=== PATIENT | female | born 1955 | race Caucasian/White ===

== ENCOUNTER → 2019-03-07 14:26 | Outpatient (CLI) | payer MEDICARE, SELFPAY ==
--- NOTE | 2019-03-07 14:44 | XR_ITS ---
PROCEDURE: XR TMJ BI CLINICAL INDICATION: TMJ LOCKING UP Left-sided TMJ locking up COMPARISON: No exams were available for comparison FINDINGS: Closed and open mouth images obtained show unremarkable TMJs with no evidence of dislocation or abnormal subluxation or fixed positioning. No obvious fracture. IMPRESSION: Unremarkable TMJs Dictated by: Elian Kwok MD 03/07/2019 16:25 Electronically signed by Elian Kwok MD in [place] 03/07/2019 16:25
--- NOTE | 2019-03-07 14:44 | XR_ITS ---
PROCEDURE: XR SHOULDER LT MIN 2V CLINICAL INDICATION: SHOULDER PAIN COMPARISON: No exams were available for comparison FINDINGS: Mild osteoarthritic changes are present at the acromioclavicular joint. The glenohumeral joint has an unremarkable appearance. Artifact is present along the mid chest and axillary region. No fracture or dislocation. No lytic or blastic change. IMPRESSION: Minimal osteoarthritic change of the acromioclavicular joint. Dictated by: Elian Kwok MD 03/07/2019 16:23 Electronically signed by Elian Kwok MD in [place] 03/07/2019 16:23
== END ==
PROVIDERS: PCP Internal Medicine; Visit Provider Internal Medicine
DX: M25.512 Pain in left shoulder (principal); M26.602 Left temporomandibular joint disorder, unspecified
CPT/HCPCS: 70330; 73030

== ENCOUNTER 2019-03-31 13:00 | Outpatient (RCR) | payer MEDICARE, SELFPAY | END 2019-03-31 13:05 | disposition home or self-care (01) | LOC: PT 13:00 | PROVIDERS: Visit Provider Internal Medicine | DX: M25.512 Pain in left shoulder (principal); M25.511 Pain in right shoulder | CPT/HCPCS: 97010; 97014; 97035; 97110; 97140; 97163; G0283 ==

== ENCOUNTER → 2019-11-14 10:00 | Outpatient (CLI) | payer MEDICARE, SELFPAY ==
[2019-11-14 10:47] LABS: Basophils % 0.7 % (0.1-2.0); Eosinophils # 0.2 K/mm3 (0.0-0.4); Hemoglobin 14.1 g/dL (12.2-16.2); Lymphocytes # 1.8 K/mm3 (0.7-4.5); Lymphocytes % 39.3 % (10-50); Mean Corpuscular HGB Conc 33.7 g/dL (31.8-35.4); Mean Corpuscular Hemoglobin 32.3 pg (27.0-31.2); Mean Corpuscular Volume 95.9 fl (81-99); Monocytes # 0.2 K/mm3 (0.1-1.0); Neutrophils # 2.4 K/mm3 (1.8-7.8); Neutrophils % 50.9 % (37.0-80.0); Platelet Count 322 K/mm3 (142-424); Red Blood Count 4.38 M/mm3 (4.20-5.40); Red Cell Distribution Width 13.1 % (11.5-17.5); White Blood Count 4.7 K/mm3 (4.8-10.8)
[2019-11-14 11:29] LABS: Alanine Aminotransferase 29 U/L (12-78); Albumin Level 4.9 g/dl (3.5-5.0); Albumin/Globulin Ratio 1.7 (1.1-1.8); Alkaline Phosphatase 89 U/L (38-126); Anion Gap 13.5 mEq/L (5-15); Aspartate Amino Transferase 40 U/L (14-36); Bilirubin,Total 0.4 mg/dl (0.2-1.3); Blood Urea Nitrogen 16 mg/dl (7-17); Carbon Dioxide 31 mmol/L (22.0-30.0); Chloride 100 mmol/L (98-107); Chol/HDL Ratio 3.4 (1-3.5); Cholesterol 252 mg/dl (140-200); Estimated Glomerular Filt Rate 84 ml/min (>60); GFR (African American) 101 ML/MIN (>60); Globulin 2.9 g/dL (1.3-3.2); Glucose 110 mg/dl (74-100); HDL Cholesterol 75 mg/dl (40-60); Potassium 4.5 mmoL/L (3.5-5.1); Sodium 140 mmol/L (136-145); Total Protein,Serum 7.8 g/dl (6.3-8.2); Triglycerides 129 mg/dl (30-150); VLDL Cholesterol 26 mg/dL (0-40)
[2019-11-14 11:40] LABS: Direct LDL Cholesterol 142.09 mg/dL (100-129)
[2019-11-14 13:02] LABS: 25-OH Vitamin D, Total 55.1 ng/mL (30-100)
== END ==
PROVIDERS: Visit Provider Internal Medicine
DX: E78.5 Hyperlipidemia, unspecified (principal); M81.0 Age-related osteoporosis without current pathological fracture; M15.0 Primary generalized (osteo)arthritis
CPT/HCPCS: 80053; 80061; 82306; 85025

== ENCOUNTER → 2019-12-06 08:35 | Outpatient (CLI) | payer MEDICARE, OTHER, SELFPAY ==
--- NOTE | 2019-12-06 08:40 | XR_ITS ---
PROCEDURE: XR SHOULDER LT MIN 2V CLINICAL INDICATION: left shoulder pain COMPARISON: XR SHOULDER LT MIN 2V from 03/07/2019 FINDINGS: There are mild osteoarthritic changes of the acromioclavicular joint and glenohumeral joint. No fracture or dislocation. No lytic or blastic change. No subacromial stenosis. IMPRESSION: Mild osteoarthritic change Dictated by: Elian Kwok MD 12/06/2019 15:38 Electronically signed by Elian Kwok MD in [place] 12/06/2019 15:38
== END ==
PROVIDERS: PCP Internal Medicine; Visit Provider Orthopaedic Surgery
DX: M25.512 Pain in left shoulder (principal)
CPT/HCPCS: 73030

== ENCOUNTER → 2019-12-12 07:42 | Outpatient (CLI) | payer MEDICARE, SELFPAY ==
--- NOTE | 2019-12-12 07:42 | MR_ITS ---
PROCEDURE: MR SHOULDER LT WO CON CLINICAL INDICATION: left shoulder pain UNABLE TO PUT HAND BEHIND BACK. WHEN LIFTING AND PULLING BACK PATIENT HAS SHOULDER PAIN. NO INJURY. XYRS. WEAKNESS IN ARM. PRIOR X-RAY 12-06-19 COMPARISON: XR SHOULDER LT MIN 2V from 12/06/2019 TECHNIQUE: Routine multiplanar multi echo sequences are performed without gadolinium enhancement. FINDINGS: Motion artifact somewhat obscures fine detail. Mild subacromial stenosis. There are mild hypertrophic changes of the acromioclavicular joint. There is slight increased T2 signal of the supraspinatus tendon distally suggesting tendinopathy/tendinosis with minimal irregularity of the undersurface of the supraspinatus tendon which could be due to partial tear.. A complete or full-thickness tear is not felt to be present. The infraspinatus, subscapularis, and teres minor tendons are intact. Bicipital tendon is in place. No obvious labral tear. There is a small amount fluid within the bicipital tendon sheath. IMPRESSION: 1. Tendinopathy/tendinosis of the supraspinatus tendon with possible partial incomplete tear along the inferior surface. A full-thickness or complete tear is not present. There is mild subacromial stenosis. 2. Small amount fluid within the bicipital tendon sheath suggesting tendonitis Dictated by: Elian Kwok MD 12/13/2019 11:08 Electronically signed by Elian Kwok MD in [place] 12/13/2019 11:08
== END ==
PROVIDERS: PCP Internal Medicine; Visit Provider Orthopaedic Surgery
DX: M25.512 Pain in left shoulder (principal)
CPT/HCPCS: 73221

== ENCOUNTER → 2020-01-16 10:42 | Outpatient (POV) | payer MEDICARE, SELFPAY | PROVIDERS: Visit Provider Otolaryngology | DX: Z00.00 Encounter for general adult medical examination without abnormal findings (principal) ==

== ENCOUNTER → 2020-05-22 09:34 | Outpatient (CLI) | payer MEDICARE, SELFPAY ==
[2020-05-22 10:52] LABS: Chloride 103 mmol/L (98-107); Potassium 5.8 mmoL/L (3.5-5.1); Sodium 141 mmol/L (136-145)
[2020-05-22 10:54] LABS: Blood Urea Nitrogen 17 mg/dl (7-17); Estimated Glomerular Filt Rate 72 ml/min (>60); GFR (African American) 87 ML/MIN (>60)
[2020-05-22 10:55] LABS: Alanine Aminotransferase 30 U/L (12-78); Albumin/Globulin Ratio 1.7 (1.1-1.8); Alkaline Phosphatase 78 U/L (38-126); Anion Gap 13.8 mEq/L (5-15); Aspartate Amino Transferase 34 U/L (14-36); Bilirubin,Total 0.6 mg/dl (0.2-1.3); Calcium 10.3 mg/dl (8.4-10.2); Carbon Dioxide 30 mmol/L (22.0-30.0); Chol/HDL Ratio 2.8 (1-3.5); Cholesterol 215 mg/dl (140-200); Creatine Kinase 78 U/L (30-135); Glucose 106 mg/dl (74-100); HDL Cholesterol 77 mg/dl (40-60); Triglycerides 115 mg/dl (30-150); VLDL Cholesterol 23 mg/dL (0-40)
== END ==
PROVIDERS: Visit Provider Internal Medicine
DX: E78.5 Hyperlipidemia, unspecified (principal); R73.01 Impaired fasting glucose; H81.10 Benign paroxysmal vertigo, unspecified ear
CPT/HCPCS: 36415; 80053; 80061; 82550

== ENCOUNTER → 2020-09-23 09:25 | Outpatient (CLI) | payer MEDICARE, SELFPAY ==
[2020-09-23 11:08] LABS: Chloride 102 mmol/L (98-107)
[2020-09-23 11:09] LABS: Potassium 5.1 mmoL/L (3.5-5.1); Sodium 141 mmol/L (136-145)
[2020-09-23 11:11] LABS: Alanine Aminotransferase 28 U/L (12-78); Alkaline Phosphatase 82 U/L (38-126); Aspartate Amino Transferase 35 U/L (14-36); Bilirubin,Total 0.6 mg/dl (0.2-1.3); Blood Urea Nitrogen 18 mg/dl (7-17); Estimated Glomerular Filt Rate 83 ml/min (>60); GFR (African American) 101 ML/MIN (>60)
[2020-09-23 11:12] LABS: Albumin Level 5.1 g/dl (3.5-5.0); Anion Gap 15.1 mEq/L (5-15); Calcium 9.8 mg/dl (8.4-10.2); Carbon Dioxide 29 mmol/L (22.0-30.0); Chol/HDL Ratio 3.4 (1-3.5); Cholesterol 223 mg/dl (140-200); Globulin 2.5 g/dL (1.3-3.2); Glucose 100 mg/dl (74-100); HDL Cholesterol 65 mg/dl (40-60); Total Protein,Serum 7.6 g/dl (6.3-8.2); Triglycerides 167 mg/dl (30-150); VLDL Cholesterol 33 mg/dL (0-40)
== END ==
PROVIDERS: Visit Provider Internal Medicine
DX: E78.5 Hyperlipidemia, unspecified (principal); E87.5 Hyperkalemia; B78.9 Strongyloidiasis, unspecified
CPT/HCPCS: 36415; 80053; 80061

== ENCOUNTER → 2020-12-30 10:05 | Outpatient (CLI) | payer MEDICARE, SELFPAY ==
[2020-12-30 10:56] LABS: Chloride 104 mmol/L (98-107); Sodium 141 mmol/L (136-145)
[2020-12-30 10:57] LABS: Potassium 4.7 mmoL/L (3.5-5.1)
[2020-12-30 10:59] LABS: Alanine Aminotransferase 26 U/L (12-78); Alkaline Phosphatase 85 U/L (38-126); Aspartate Amino Transferase 38 U/L (14-36); Bilirubin,Total 0.9 mg/dl (0.2-1.3); Blood Urea Nitrogen 17 mg/dl (7-17); Estimated Glomerular Filt Rate 100 ml/min (>60); GFR (African American) 121 ML/MIN (>60)
[2020-12-30 11:00] LABS: Albumin Level 5.1 g/dl (3.5-5.0); Albumin/Globulin Ratio 1.8 (1.1-1.8); Anion Gap 12.7 mEq/L (5-15); Calcium 9.5 mg/dl (8.4-10.2); Carbon Dioxide 29 mmol/L (22.0-30.0); Chol/HDL Ratio 3.2 (1-3.5); Cholesterol 217 mg/dl (140-200); Globulin 2.9 g/dL (1.3-3.2); Glucose 96 mg/dl (74-100); HDL Cholesterol 67 mg/dl (40-60); Triglycerides 173 mg/dl (30-150); VLDL Cholesterol 35 mg/dL (0-40)
[2020-12-30 11:11] LABS: Direct LDL Cholesterol 103.16 mg/dL (100-129)
== END ==
PROVIDERS: Visit Provider Internal Medicine
DX: E78.5 Hyperlipidemia, unspecified (principal); M81.0 Age-related osteoporosis without current pathological fracture; M15.0 Primary generalized (osteo)arthritis
CPT/HCPCS: 36415; 80053; 80061

== ENCOUNTER → 2021-03-25 08:26 | Outpatient (CLI) | payer MEDICARE, SELFPAY ==
[2021-03-25 09:17] LABS: Basophils # 0.1 K/mm3 (0-0.2); Basophils % 1.2 % (0.1-2.0); Eosinophils # 0.2 K/mm3 (0.0-0.4); Eosinophils % 4.4 % (0.1-12.0); Hematocrit 44.6 % (37.0-47.0); Hemoglobin 14.3 g/dL (12.2-16.2); Lymphocytes # 1.9 K/mm3 (0.7-4.5); Lymphocytes % 41.9 % (10-50); Mean Platelet Volume 7.9 fl (7.4-10.4); Monocytes # 0.3 K/mm3 (0.1-1.0); Monocytes % 5.8 % (1.7-9.3); Neutrophils # 2.1 K/mm3 (1.8-7.8); Neutrophils % 46.7 % (37.0-80.0); Platelet Count 334 K/mm3 (142-424); Red Blood Count 4.46 M/mm3 (4.20-5.40); Red Cell Distribution Width 13.1 % (11.5-17.5); White Blood Count 4.5 K/mm3 (4.8-10.8)
[2021-03-25 09:56] LABS: Chloride 104 mmol/L (98-107); Sodium 141 mmol/L (136-145)
[2021-03-25 09:58] LABS: Alanine Aminotransferase 29 U/L (12-78); Aspartate Amino Transferase 37 U/L (14-36); Blood Urea Nitrogen 14 mg/dl (7-17); Estimated Glomerular Filt Rate 83 ml/min (>60); GFR (African American) 101 ML/MIN (>60)
[2021-03-25 09:59] LABS: Albumin Level 4.7 g/dl (3.5-5.0); Albumin/Globulin Ratio 1.7 (1.1-1.8); Alkaline Phosphatase 77 U/L (38-126); Bilirubin,Total 0.5 mg/dl (0.2-1.3); Calcium 9.6 mg/dl (8.4-10.2); Carbon Dioxide 30 mmol/L (22.0-30.0); Chol/HDL Ratio 3.2 (1-3.5); Cholesterol 212 mg/dl (140-200); Globulin 2.8 g/dL (1.3-3.2); Glucose 97 mg/dl (74-100); HDL Cholesterol 66 mg/dl (40-60); Total Protein,Serum 7.5 g/dl (6.3-8.2); Triglycerides 150 mg/dl (30-150); VLDL Cholesterol 30 mg/dL (0-40)
[2021-03-25 10:25] LABS: Direct LDL Cholesterol 101.87 mg/dL (100-129)
== END ==
PROVIDERS: Visit Provider Internal Medicine
DX: E78.5 Hyperlipidemia, unspecified (principal); M15.0 Primary generalized (osteo)arthritis
CPT/HCPCS: 36415; 80053; 80061; 85025

== ENCOUNTER → 2021-04-30 15:19 | Outpatient (CLI) | payer MEDICARE, SELFPAY ==
--- NOTE | 2021-04-30 15:24 | XR_ITS ---
PROCEDURE: XR KNEE RT 3V CLINICAL INDICATION: RT KNEE PAIN/SWELLING COMPARISON: No exams were available for comparison FINDINGS: No fracture or dislocation. No lytic or blastic change. There is normal mineralization. Osteoarthritic changes are present involving the lateral compartment with decrease in the joint space and osteophyte formation of the distal femur laterally. There is mild lateral translation of the tibia by approximately 4 mm. Increased density is present in the suprapatellar region consistent with knee joint effusion. Other findings:None. IMPRESSION: Mild osteoarthritic changes of the lateral compartment with knee joint effusion Dictated by: Elian Kwok MD 04/30/2021 15:46 Elian Kwok MD in [place] 04/30/2021 15:46
== END ==
PROVIDERS: PCP Internal Medicine; Visit Provider Internal Medicine
DX: M25.561 Pain in right knee (principal); M25.461 Effusion, right knee
CPT/HCPCS: 73562

== ENCOUNTER → 2021-05-08 10:50 | Outpatient (CLI) | payer MEDICARE, SELFPAY ==
--- NOTE | 2021-05-08 10:53 | MR_ITS ---
PROCEDURE: MR KNEE RT WO CON CLINICAL INDICATION: RIGHT KNEE PAIN COMPARISON: CR XR KNEE RT 3V from 04/30/2021 TECHNIQUE: Routine multiplanar multi echo sequences are performed without gadolinium enhancement. FINDINGS: Cruciate ligaments appear intact. The collateral ligaments, patellar tendon, and quadriceps tendon appear intact. There is a horizontal tear involving the posterior horn of the lateral meniscus. There is slight diffuse increased PD signal within the body of the lateral meniscus. The anterior horn lateral meniscus also shows increased signal with some rounding off of the anterior and inferior margin along its central aspect suggesting a tear. The medial meniscus has an unremarkable appearance. There are tricompartmental osteoarthritic changes. There is mild lateral translation of the tibia. The body of the lateral meniscus is slightly extruded laterally. Increased T2 signal involves the subcortical region of the lateral tibial plateau laterally and more centrally suggesting areas of bone marrow edema. There is loss of the patellar cartilage posteriorly with mild lateral subluxation of the patella by approximately 4 mm. There is a medium size knee joint effusion. A 6.5 x 1.5 cm Arce's cyst is present. Spongiform areas of increased T2 signal are present along the anterior aspect of the distal femur medially and also along the anterior aspect of the femur and more proximally. These could represent areas of venous channels. IMPRESSION: 1. Nondisplaced horizontal tear posterior horn lateral meniscus 2. Abnormal shape with increased signal of the anterior horn of the lateral meniscus more medially also suggestive of a tear. 3. Osteoarthritic changes with medium size knee joint effusion and Arce's cyst. 4. Mild amount of edema involving the lateral and medial aspect of the lateral tibial plateau Dictated by: Elian Kwok MD 05/09/2021 12:04 Elian Kwok MD in [place] 05/09/2021 12:04
== END ==
PROVIDERS: PCP Internal Medicine; Visit Provider Internal Medicine
DX: M25.561 Pain in right knee (principal)
CPT/HCPCS: 73721

== ENCOUNTER → 2021-09-23 15:13 | Outpatient (CLI) | payer MEDICARE, SELFPAY ==
[2021-09-23 16:26] LABS: Chloride 104 mmol/L (98-107); Sodium 140 mmol/L (136-145)
[2021-09-23 16:29] LABS: Alanine Aminotransferase 24 U/L (12-78); Albumin Level 4.3 g/dl (3.5-5.0); Albumin/Globulin Ratio 1.8 (1.1-1.8); Alkaline Phosphatase 67 U/L (38-126); Anion Gap 13.6 mEq/L (5-15); Aspartate Amino Transferase 34 U/L (14-36); Bilirubin,Total 0.6 mg/dl (0.2-1.3); Blood Urea Nitrogen 12 mg/dl (7-17); Calcium 9.9 mg/dl (8.4-10.2); Carbon Dioxide 29 mmol/L (22.0-30.0); Cholesterol 182 mg/dl (140-200); Estimated Glomerular Filt Rate 71 ml/min (>60); GFR (African American) 86 ML/MIN (>60); Globulin 2.4 g/dL (1.3-3.2); Glucose 89 mg/dl (74-100); Total Protein,Serum 6.7 g/dl (6.3-8.2); Triglycerides 124 mg/dl (30-150); VLDL Cholesterol 25 mg/dL (0-40)
[2021-09-23 16:30] LABS: Chol/HDL Ratio 3.3 (1-3.5); HDL Cholesterol 56 mg/dl (40-60)
[2021-09-23 16:35] LABS: Potassium 6.6 mmoL/L (3.5-5.1)
[2021-09-23 16:40] LABS: Direct LDL Cholesterol 91.12 mg/dL (100-129)
[2021-09-23 17:15] LABS: 25-OH Vitamin D, Total 45.5 ng/mL (30-100)
== END ==
PROVIDERS: Visit Provider Internal Medicine
DX: R73.01 Impaired fasting glucose (principal); E78.5 Hyperlipidemia, unspecified; M81.0 Age-related osteoporosis without current pathological fracture; M17.11 Unilateral primary osteoarthritis, right knee
CPT/HCPCS: 80053; 80061; 82306

== ENCOUNTER → 2021-09-26 12:20 | Outpatient (CLI) | payer MEDICARE, SELFPAY ==
[2021-09-26 12:45] LABS: Potassium 6.1 mmoL/L (3.5-5.1)
== END ==
PROVIDERS: Visit Provider Internal Medicine
DX: E87.5 Hyperkalemia (principal)
CPT/HCPCS: 84132

== ENCOUNTER → 2021-10-03 10:51 | Outpatient (CLI) | payer MEDICARE, SELFPAY ==
[2021-10-03 11:58] LABS: Potassium 5.6 mmoL/L (3.5-5.1)
== END ==
PROVIDERS: PCP Internal Medicine; Visit Provider Internal Medicine
DX: E87.5 Hyperkalemia (principal)
CPT/HCPCS: 36415; 84132

== ENCOUNTER → 2021-10-17 11:22 | Outpatient (CLI) | payer MEDICARE, SELFPAY ==
[2021-10-17 12:33] LABS: Chloride 104 mmol/L (98-107); Sodium 141 mmol/L (136-145)
[2021-10-17 12:34] LABS: Potassium 5.5 mmoL/L (3.5-5.1)
[2021-10-17 12:36] LABS: Blood Urea Nitrogen 17 mg/dl (7-17); Estimated Glomerular Filt Rate 62 ml/min (>60); GFR (African American) 75 ML/MIN (>60)
[2021-10-17 12:37] LABS: Anion Gap 12.5 mEq/L (5-15); Calcium 10.3 mg/dl (8.4-10.2); Carbon Dioxide 30 mmol/L (22.0-30.0); Glucose 117 mg/dl (74-100)
== END ==
PROVIDERS: PCP Internal Medicine; Visit Provider Internal Medicine
DX: I10 Essential (primary) hypertension (principal); E87.5 Hyperkalemia
CPT/HCPCS: 36415; 80048

== ENCOUNTER → 2021-12-05 11:10 | Outpatient (CLI) | payer MEDICARE, SELFPAY ==
[2021-12-05 12:06] LABS: Basophils # 0.2 K/mm3 (0-0.2); Basophils % 5.3 % (0.1-2.0); Eosinophils # 0.1 K/mm3 (0.0-0.4); Eosinophils % 2.7 % (0.1-12.0); Hematocrit 46.7 % (37.0-47.0); Hemoglobin 14.5 g/dL (12.2-16.2); Lymphocytes # 2.1 K/mm3 (0.7-4.5); Lymphocytes % 50.1 % (10-50); Mean Corpuscular HGB Conc 31.2 g/dL (31.8-35.4); Mean Corpuscular Hemoglobin 31.6 pg (27.0-31.2); Mean Corpuscular Volume 101.6 fl (81-99); Mean Platelet Volume 7.7 fl (7.4-10.4); Monocytes # 0.3 K/mm3 (0.1-1.0); Neutrophils # 1.6 K/mm3 (1.8-7.8); Neutrophils % 39.2 % (37.0-80.0); Platelet Count 378 K/mm3 (142-424); Red Cell Distribution Width 13.3 % (11.5-17.5); White Blood Count 4.1 K/mm3 (4.8-10.8)
[2021-12-05 12:09] LABS: MANUAL DIFFERENTIAL MANUAL DIFFERENTIAL (MANUAL DIFF)
[2021-12-05 12:28] LABS: Anisocytosis 1+; Eosinophils % 1 % (0-3); Lymphocytes % 49 % (10-50); Macrocytosis 1+; Monocytes % 9 % (2-9); Neutrophils % 39 % (42-76); Poikilocytosis 1+; Total Cells Counted 100
[2021-12-05 12:29] LABS: Platelet Estimate Normal
[2021-12-05 13:26] LABS: Chloride 104 mmol/L (98-107)
[2021-12-05 13:27] LABS: Sodium 140 mmol/L (136-145)
[2021-12-05 13:29] LABS: Alanine Aminotransferase 21 U/L (12-78); Albumin Level 4.6 g/dl (3.5-5.0); Albumin/Globulin Ratio 1.8 (1.1-1.8); Alkaline Phosphatase 87 U/L (38-126); Aspartate Amino Transferase 34 U/L (14-36); Bilirubin,Total 0.5 mg/dl (0.2-1.3); Blood Urea Nitrogen 11 mg/dl (7-17); Calcium 10.3 mg/dl (8.4-10.2); Carbon Dioxide 29 mmol/L (22.0-30.0); Estimated Glomerular Filt Rate 62 ml/min (>60); GFR (African American) 75 ML/MIN (>60); Globulin 2.5 g/dL (1.3-3.2); Glucose 104 mg/dl (74-100); Total Protein,Serum 7.1 g/dl (6.3-8.2)
[2021-12-05 13:45] LABS: Anion Gap 12.1 mEq/L (5-15); Potassium 5.1 mmoL/L (3.5-5.1)
[2021-12-05 15:29] LABS: Vitamin B12 624 pg/mL (239-931)
[2021-12-05 15:31] LABS: Folate > 20.00 ng/mL
== END ==
PROVIDERS: PCP Internal Medicine; Visit Provider Internal Medicine
DX: K52.9 Noninfective gastroenteritis and colitis, unspecified (principal); E87.5 Hyperkalemia
CPT/HCPCS: 36415; 80053; 82607; 82746; 85007; 85025

== ENCOUNTER → 2021-12-11 10:27 | Outpatient (CLI) | payer MEDICARE, SELFPAY ==
[2021-12-11 10:42] LABS: Microscopic, Urine URINE MICROSCOPIC (MICROSCOPIC)
[2021-12-11 11:07] LABS: Appearance,Urine CLEAR (Clear); Bilirubin,Urine Negative (Negative); Blood, Urine Negative (Negative); Color,Urine YELLOW (Yellow); Glucose,Urine (UA) Negative (Negative); Ketones,Urine Negative (Negative); Leukocyte Esterase,Urine Negative (Negative); Nitrate,Urine Negative (Negative); Protein,Urine Negative (Negative); Specific Gravity, Urine <= 1.005 (1.005-1.030); Urobilinogen,Urine 0.2 EU/dl (0.2)
[2021-12-11 11:08] LABS: Basophils # 0.1 K/mm3 (0-0.2); Basophils % 2.2 % (0.1-2.0); Eosinophils # 0.1 K/mm3 (0.0-0.4); Eosinophils % 2.2 % (0.1-12.0); Hematocrit 44.8 % (37.0-47.0); Hemoglobin 14.1 g/dL (12.2-16.2); Lymphocytes # 2.1 K/mm3 (0.7-4.5); Lymphocytes % 38.3 % (10-50); Mean Corpuscular HGB Conc 31.6 g/dL (31.8-35.4); Mean Corpuscular Volume 101.3 fl (81-99); Mean Platelet Volume 7.9 fl (7.4-10.4); Monocytes # 0.4 K/mm3 (0.1-1.0); Monocytes % 7.9 % (1.7-9.3); Neutrophils # 2.8 K/mm3 (1.8-7.8); Neutrophils % 49.5 % (37.0-80.0); Platelet Count 438 K/mm3 (142-424); Red Blood Count 4.42 M/mm3 (4.20-5.40); Red Cell Distribution Width 13.5 % (11.5-17.5); White Blood Count 5.6 K/mm3 (4.8-10.8)
[2021-12-11 11:15] LABS: Creatinine,Urine Random 30 mg/dL (Not Estab.)
[2021-12-11 11:19] LABS: Bacteria,Urine Trace /lpf; Squamous Epithelial Cell,Urine Occasional #/hpf (0-5)
[2021-12-11 11:45] LABS: Albumin Level 4.3 g/dl (3.5-5.0); Anion Gap 11.6 mEq/L (5-15); Blood Urea Nitrogen 13 mg/dl (7-17); Calcium 9.8 mg/dl (8.4-10.2); Carbon Dioxide 29 mmol/L (22.0-30.0); Chloride 103 mmol/L (98-107); Estimated Glomerular Filt Rate 71 ml/min (>60); GFR (African American) 86 ML/MIN (>60); Glucose 104 mg/dl (74-100); Phosphorous 4.2 mg/dl (2.5-4.5); Potassium 5.6 mmoL/L (3.5-5.1); Sodium 138 mmol/L (136-145)
[2021-12-11 11:57] LABS: Intact Parathyroid Hormone 47.9 pg/mL (7.5-53.5)
[2021-12-11 12:02] LABS: 25-OH Vitamin D, Total 57.5 ng/mL (30-100)
== END ==
PROVIDERS: PCP Internal Medicine; Visit Provider Internal Medicine Nephrology
DX: E87.5 Hyperkalemia (principal); E55.9 Vitamin D deficiency, unspecified
CPT/HCPCS: 36415; 80069; 81001; 82306; 82570; 83970; 84155; 85025

== ENCOUNTER → 2021-12-15 12:32 | Outpatient (POV) | payer MEDICARE, SELFPAY | PROVIDERS: Visit Provider Internal Medicine Nephrology | DX: Z00.00 Encounter for general adult medical examination without abnormal findings (principal) ==

== ENCOUNTER → 2021-12-30 10:17 | Outpatient (POV) | payer MEDICARE, SELFPAY | PROVIDERS: Visit Provider Dermatology | DX: Z00.00 Encounter for general adult medical examination without abnormal findings (principal) ==

== ENCOUNTER → 2022-01-12 10:28 | Outpatient (CLI) | payer MEDICARE, SELFPAY ==
[2022-01-12 12:08] LABS: Potassium 4.3 mmoL/L (3.5-5.1)
== END ==
PROVIDERS: PCP Internal Medicine; Visit Provider Internal Medicine
DX: E87.5 Hyperkalemia (principal)
CPT/HCPCS: 36415; 84132

== ENCOUNTER → 2022-03-30 09:44 | Outpatient (CLI) | payer MEDICARE, SELFPAY ==
[2022-03-30 10:23] LABS: Basophils # 0.2 K/mm3 (0-0.2); Basophils % 4.4 % (0.1-2.0); Eosinophils # 0.3 K/mm3 (0.0-0.4); Eosinophils % 5.5 % (0.1-12.0); Hematocrit 45.7 % (37.0-47.0); Hemoglobin 14.6 g/dL (12.2-16.2); Lymphocytes # 1.8 K/mm3 (0.7-4.5); Lymphocytes % 33.4 % (10-50); Mean Corpuscular Hemoglobin 31.8 pg (27.0-31.2); Mean Corpuscular Volume 99.2 fl (81-99); Mean Platelet Volume 7.8 fl (7.4-10.4); Monocytes # 0.3 K/mm3 (0.1-1.0); Neutrophils # 2.9 K/mm3 (1.8-7.8); Neutrophils % 55.1 % (37.0-80.0); Platelet Count 418 K/mm3 (142-424); Red Cell Distribution Width 12.8 % (11.5-17.5); White Blood Count 5.3 K/mm3 (4.8-10.8)
[2022-03-30 10:44] LABS: Chloride 101 mmol/L (98-107); Potassium 5.2 mmoL/L (3.5-5.1); Sodium 142 mmol/L (136-145)
[2022-03-30 10:46] LABS: Alanine Aminotransferase 24 U/L (12-78); Aspartate Amino Transferase 34 U/L (14-36); Blood Urea Nitrogen 15 mg/dl (7-17); Estimated Glomerular Filt Rate 71 ml/min (>60); GFR (African American) 86 ML/MIN (>60)
[2022-03-30 10:47] LABS: Albumin Level 4.8 g/dl (3.5-5.0); Albumin/Globulin Ratio 1.8 (1.1-1.8); Alkaline Phosphatase 101 U/L (38-126); Anion Gap 13.2 mEq/L (5-15); Bilirubin,Total 0.4 mg/dl (0.2-1.3); Calcium 9.7 mg/dl (8.4-10.2); Carbon Dioxide 33 mmol/L (22.0-30.0); Cholesterol 224 mg/dl (140-200); Globulin 2.6 g/dL (1.3-3.2); Glucose 105 mg/dl (74-100); HDL Cholesterol 74 mg/dl (40-60); Total Protein,Serum 7.4 g/dl (6.3-8.2); Triglycerides 131 mg/dl (30-150); VLDL Cholesterol 26 mg/dL (0-40)
[2022-03-30 10:58] LABS: Direct LDL Cholesterol 110.12 mg/dL (100-129)
== END ==
PROVIDERS: PCP Internal Medicine; Visit Provider Internal Medicine
DX: E87.5 Hyperkalemia (principal); E78.5 Hyperlipidemia, unspecified; K52.831 Collagenous colitis; M15.0 Primary generalized (osteo)arthritis
CPT/HCPCS: 36415; 80053; 80061; 85025

== ENCOUNTER → 2022-04-17 10:01 | Outpatient (CLI) | payer MEDICARE, OTHER, SELFPAY ==
[2022-04-17 11:28] LABS: Anion Gap 17.2 mEq/L (5-15); Blood Urea Nitrogen 16 mg/dl (7-17); Calcium 10.6 mg/dl (8.4-10.2); Carbon Dioxide 32 mmol/L (22.0-30.0); Chloride 100 mmol/L (98-107); Estimated Glomerular Filt Rate 71 ml/min (>60); GFR (African American) 86 ML/MIN (>60); Glucose 105 mg/dl (74-100); Phosphorous 4.3 mg/dl (2.5-4.5); Sodium 143 mmol/L (136-145)
[2022-04-17 17:04] LABS: Potassium 6.2 mmoL/L (3.5-5.1)
== END ==
PROVIDERS: PCP Internal Medicine; Visit Provider Internal Medicine Nephrology
DX: E87.5 Hyperkalemia (principal)
CPT/HCPCS: 36415; 80069

== ENCOUNTER 2022-04-17 20:48 | Emergency (ER) | payer MEDICARE, OTHER, SELFPAY ==
[2022-04-17 21:26] VITALS: BP 137/67; PULSE 89; RESP 18; TEMP 36.6; O2SAT 98; BMI 22.3
--- NOTE | 2022-04-17 21:31 | ECG_ITS ---
APPROVED REPORT Exam: Resting ECG HR:61 bpm ECG Measurements Heart Rate 61 AXES DE 144 P 65 QRSd 129 QRS 28 QT 447 T 69 QTc 451 Conclusion SINUS RHYTHM ANTEROSEPTAL MYOCARDIAL INFARCTION , OF INDETERMINATE AGE [40+ ms Q WAVE IN V1-V4] ABNORMAL ECG UNCONFIRMED REPORT Electronically signed by : Regino Rivera MD 04/18/2022 21:13:09
--- NOTE | 2022-04-17 21:37 | HMH.EDRECH ---
Discharge Plan Disposition Patient Disposition: Home, Self-Care Chief Complaint: Recheck/Abnormal Lab/Rx Prescriptions Prescriptions: No Action meloxicam 15 mg tablet 15 mg PO DAILY Label Comments: TAKE 1 TAB BY MOUTH ONCE DAILY WITH FOOD FOR PAIN/INFLAMMATION multivitamin Capsule 1 cap PO DAILY Referrals Follow up/Referrals: Kamaljit Meyer MD [Primary Care Provider] - See instructions Clinical Impressions Clinical Impression: Serum potassium elevated Discharge ED Provider: Fernandez Lama Recheck HPI General Chief Complaint: Recheck/Abnormal Lab/Rx Stated Complaint: elevated potassium Time Seen by Provider: 04/17/22 21:37 Mode of Arrival: Ambulatory Source of Information: Patient and Medical Record Limitations: No Limitations Description of Symptoms (Recalled from ER Triage Doc. 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 History of Present Illness HPI narrative: pt w/o specific c/o and has elevated k on prev labs today complaint: abnormal lab Initial visit (ago): hour(s) Returns today for: called because of abnormal lab/test Context: called for abnormal lab result Associated symptoms: none Related Data Home Medications Medication Instructions Recorded Confirmed meloxicam 15 mg tablet 15 mg PO DAILY 12/06/19 12/21/19 multivitamin 1 cap PO DAILY 12/06/19 12/21/19 Allergies Allergy/AdvReac Type Severity Reaction Status Date / Time No Known Allergies Allergy Verified 12/21/19 10:50 PFSH PFSH Social History Smoking Status: Former smoker alcohol intake: never current occupational status: retired Travel in the last 8 weeks: None ROS Obtained: Yes All systems reviewed & no additional complaints except as documented Physical Exam General General appearance: alert Head Head exam: normocephalic Eye Eye exam: Present PERRL and EOMI ENT ENT exam: Present mucous membranes moist Neck Neck exam: Present trachea midline Respiratory Respiratory exam: Present normal lung sounds bilaterally Cardiovascular Cardiovascular exam: Present regular rate and systolic murmur Abdominal Exam Abdominal exam: Present soft Extremities Exam Extremities exam: Present full ROM Neurological Exam Neurological exam: Present alert, oriented X3 and CN II-XII intact; Absent motor sensory deficit Psychiatric Psychiatric exam: Present normal affect Skin Skin exam: Absent rash Medical Decision Making Medical Records Medical records reviewed: Yes I reviewed the patient's medical records. Kyrie Inquiry Pt receiving controlled substance: No Vital Signs: 04/17/22 21:26 Temperature 98 F Temperature Source Oral Pulse Rate [Apical] 89 Respiratory Rate 18 Blood Pressure [Right Arm] 137/67 Blood Pressure Mean [Right Arm] 90 Blood Pressure Source [Right Arm] Automatic Cuff Blood Pressure Position [Right Arm] Sitting 02 Sat by Pulse Oximetry 98 Oxygen Delivery Method Room Air Lab Data Lab results reviewed: Yes I reviewed the patient's lab results. Lab Results 04/17/22 21:20: Sodium 143, Potassium 4.2 D, Chloride 102, Carbon Dioxide 27, Anion Gap 18.2 H, BUN 15, Creatinine 0.80, Estimated Creat Clear 49, Estimated GFR 71, Est GFR ( Amer) 86, Glucose 68 L D, Calcium 9.7 Result diagrams: 04/17/22 21:20 Orders (Tests/Meds): ORDERS Category Date Time Status Basic Metabolic Panel Stat Lab 04/17/22 21:20 Completed ECG Data Tracing #1: Normal Sinus Rhythm: Yes Ischemic changes: non-specific ST-T wave changes Medical Decision Narrative: stable exam and labs Critical Care Time Critical Care Time Critical Care Time: No Attestation: On 04/17/22, the high probability of a clinically significant, sudden or life threatening deterioration of the following system(s) required my full and dire
[2022-04-17 21:44] LABS: Chloride 102 mmol/L (98-107); Potassium 4.2 mmoL/L (3.5-5.1); Sodium 143 mmol/L (136-145)
[2022-04-17 21:46] LABS: Blood Urea Nitrogen 15 mg/dl (7-17); Creatinine Clearance Estimated 49 mL/min (50-200); Estimated Glomerular Filt Rate 71 ml/min (>60); GFR (African American) 86 ML/MIN (>60)
[2022-04-17 21:47] LABS: Anion Gap 18.2 mEq/L (5-15); Calcium 9.7 mg/dl (8.4-10.2); Carbon Dioxide 27 mmol/L (22.0-30.0); Glucose 68 mg/dl (74-100)
[2022-04-17 22:20] VITALS: BP 131/72; PULSE 64; RESP 16; TEMP 36.6; O2SAT 94
== END 2022-04-17 22:24 | disposition home or self-care (01) ==
PROVIDERS: Emergency Provider Emergency Medicine; PCP Internal Medicine
DX: E87.5 Hyperkalemia (principal)
CPT/HCPCS: 36415; 80048; 80069; 93005; 99283

== ENCOUNTER → 2022-04-20 10:08 | Outpatient (POV) | payer MEDICARE, OTHER, SELFPAY | PROVIDERS: Visit Provider Internal Medicine Nephrology | DX: Z00.00 Encounter for general adult medical examination without abnormal findings (principal) ==

== ENCOUNTER → 2022-05-14 11:11 | Outpatient (CLI) | payer MEDICARE, OTHER, SELFPAY ==
[2022-05-14 12:35] LABS: Albumin Level 4.9 g/dl (3.5-5.0); Anion Gap 13.7 mEq/L (5-15); Blood Urea Nitrogen 19 mg/dl (7-17); Calcium 10.1 mg/dl (8.4-10.2); Carbon Dioxide 31 mmol/L (22.0-30.0); Chloride 103 mmol/L (98-107); Estimated Glomerular Filt Rate 71 ml/min (>60); GFR (African American) 86 ML/MIN (>60); Glucose 104 mg/dl (74-100); Phosphorous 4.1 mg/dl (2.5-4.5); Potassium 4.7 mmoL/L (3.5-5.1); Sodium 143 mmol/L (136-145)
== END ==
PROVIDERS: PCP Internal Medicine; Visit Provider Internal Medicine Nephrology
DX: E87.5 Hyperkalemia (principal)
CPT/HCPCS: 36415; 80069

== ENCOUNTER → 2022-09-28 12:59 | Outpatient (CLI) | payer MEDICARE, OTHER, SELFPAY ==
[2022-09-28 14:47] LABS: Basophils % 0.6 % (0.1-2.0); Eosinophils # 0.1 K/mm3 (0.0-0.4); Eosinophils % 3.2 % (0.1-12.0); Hematocrit 43.2 % (37.0-47.0); Hemoglobin 13.8 g/dL (12.2-16.2); Lymphocytes # 1.9 K/mm3 (0.7-4.5); Lymphocytes % 43.6 % (10-50); Mean Corpuscular Hemoglobin 32.2 pg (27.0-31.2); Mean Corpuscular Volume 100.7 fl (81-99); Mean Platelet Volume 8.2 fl (7.4-10.4); Monocytes # 0.3 K/mm3 (0.1-1.0); Neutrophils # 1.9 K/mm3 (1.8-7.8); Neutrophils % 44.5 % (37.0-80.0); Platelet Count 363 K/mm3 (142-424); White Blood Count 4.2 K/mm3 (4.8-10.8)
[2022-09-28 15:15] LABS: Chloride 93 mmol/L (98-107); Potassium 4.2 mmoL/L (3.5-5.1); Sodium 136 mmol/L (136-145)
[2022-09-28 15:17] LABS: Blood Urea Nitrogen 16 mg/dl (7-17); Estimated Glomerular Filt Rate 83 ml/min (>60); GFR (African American) 100 ML/MIN (>60)
[2022-09-28 15:18] LABS: Alanine Aminotransferase 25 U/L (12-78); Albumin Level 4.5 g/dl (3.5-5.0); Albumin/Globulin Ratio 1.8 (1.1-1.8); Alkaline Phosphatase 72 U/L (38-126); Anion Gap 16.2 mEq/L (5-15); Aspartate Amino Transferase 35 U/L (14-36); Bilirubin,Total 0.8 mg/dl (0.2-1.3); Calcium 9.1 mg/dl (8.4-10.2); Carbon Dioxide 31 mmol/L (22.0-30.0); Chol/HDL Ratio 2.8 (1-3.5); Cholesterol 253 mg/dl (140-200); Globulin 2.5 g/dL (1.3-3.2); Glucose 74 mg/dl (74-100); HDL Cholesterol 92 mg/dl (40-60); Triglycerides 122 mg/dl (30-150); VLDL Cholesterol 24 mg/dL (0-40)
[2022-09-28 15:29] LABS: Direct LDL Cholesterol 119.98 mg/dL (100-129)
[2022-09-28 16:07] LABS: Vitamin B12 469 pg/mL (239-931)
== END ==
PROVIDERS: PCP Internal Medicine; Visit Provider Internal Medicine
DX: K52.9 Noninfective gastroenteritis and colitis, unspecified (principal); E78.5 Hyperlipidemia, unspecified; E87.5 Hyperkalemia; D75.89 Other specified diseases of blood and blood-forming organs; M81.0 Age-related osteoporosis without current pathological fracture; M15.0 Primary generalized (osteo)arthritis
CPT/HCPCS: 80053; 80061; 82607; 82746; 85025

== ENCOUNTER → 2023-04-06 09:45 | Outpatient (CLI) | payer MEDICARE, OTHER, SELFPAY ==
[2023-04-06 10:26] LABS: Basophils # 0.1 K/mm3 (0-0.2); Basophils % 1.1 % (0.1-2.0); Eosinophils # 0.2 K/mm3 (0.0-0.4); Eosinophils % 3.5 % (0.1-12.0); Hematocrit 40.3 % (37.0-47.0); Hemoglobin 13.9 g/dL (12.2-16.2); Lymphocytes % 41.5 % (10-50); Mean Corpuscular HGB Conc 34.5 g/dL (31.8-35.4); Mean Corpuscular Hemoglobin 34.6 pg (27.0-31.2); Mean Corpuscular Volume 100.2 fl (81-99); Mean Platelet Volume 7.2 fl (7.4-10.4); Monocytes # 0.3 K/mm3 (0.1-1.0); Monocytes % 5.3 % (1.7-9.3); Neutrophils # 2.3 K/mm3 (1.8-7.8); Neutrophils % 48.7 % (37.0-80.0); Platelet Count 309 K/mm3 (142-424); Red Blood Count 4.02 M/mm3 (4.20-5.40); Red Cell Distribution Width 12.7 % (11.5-17.5); White Blood Count 4.7 K/mm3 (4.8-10.8)
[2023-04-06 10:53] LABS: Erythrocyte Sedimentation Rate 17 mm/hr (0-30)
[2023-04-06 11:09] LABS: Alanine Aminotransferase 25 U/L (12-78); Albumin Level 4.5 g/dl (3.5-5.0); Albumin/Globulin Ratio 1.7 (1.1-1.8); Alkaline Phosphatase 73 U/L (38-126); Anion Gap 12.1 mEq/L (5-15); Aspartate Amino Transferase 36 U/L (14-36); Bilirubin,Total 0.6 mg/dl (0.2-1.3); Blood Urea Nitrogen 14 mg/dl (7-17); Calcium 9.6 mg/dl (8.4-10.2); Carbon Dioxide 31 mmol/L (22.0-30.0); Chloride 102 mmol/L (98-107); Cholesterol 248 mg/dl (140-200); Estimated Glomerular Filt Rate 83 ml/min (>60); GFR (African American) 100 ML/MIN (>60); Globulin 2.7 g/dL (1.3-3.2); Glucose 94 mg/dl (74-100); Potassium 5.1 mmoL/L (3.5-5.1); Sodium 140 mmol/L (136-145); Total Protein,Serum 7.2 g/dl (6.3-8.2); Triglycerides 115 mg/dl (30-150); VLDL Cholesterol 23 mg/dL (0-40)
[2023-04-06 11:16] LABS: Chol/HDL Ratio 2.5 (1-3.5); HDL Cholesterol 100 mg/dl (40-60)
[2023-04-06 11:19] LABS: Direct LDL Cholesterol 104.09 mg/dL (100-129)
[2023-04-06 11:39] LABS: Thyroid Stimulating Hormone 1.69 uIU/mL (0.465-4.68)
== END ==
PROVIDERS: PCP Internal Medicine; Visit Provider Internal Medicine
DX: D75.89 Other specified diseases of blood and blood-forming organs (principal); K52.831 Collagenous colitis; E78.5 Hyperlipidemia, unspecified; M81.0 Age-related osteoporosis without current pathological fracture; M15.0 Primary generalized (osteo)arthritis; M25.561 Pain in right knee
CPT/HCPCS: 36415; 80053; 80061; 84443; 85025; 85651

== ENCOUNTER → 2023-04-12 11:02 | Outpatient (CLI) | payer MEDICARE, OTHER, SELFPAY ==
--- NOTE | 2023-04-12 11:08 | XR_ITS ---
FINAL REPORT CLINICAL HISTORY: rt knee pain FINDINGS: RIGHT KNEE 3 views of the right knee were obtained. There is no acute fracture or dislocation. Visualized joint spaces are normally aligned. Soft tissues are unremarkable. IMPRESSION: No acute bony abnormality. Reviewed, Interpreted and Dictated by Ben Fung MD Transcribed by Asia Rosas Authenticated and [facility]
== END ==
PROVIDERS: PCP Internal Medicine; Visit Provider Internal Medicine
DX: M25.561 Pain in right knee (principal)
CPT/HCPCS: 73562

== ENCOUNTER 2023-10-08 13:42 | Outpatient (CLI) | payer MEDICARE, OTHER, SELFPAY ==
[2023-10-08 15:13] LABS: Alanine Aminotransferase 24 U/L (12-78); Albumin Level 4.5 g/dl (3.5-5.0); Albumin/Globulin Ratio 1.8 (1.1-1.8); Alkaline Phosphatase 75 U/L (38-126); Anion Gap 14.6 mEq/L (5-15); Aspartate Amino Transferase 34 U/L (14-36); Bilirubin,Total 0.8 mg/dl (0.2-1.3); Blood Urea Nitrogen 13 mg/dl (7-17); Calcium 9.6 mg/dl (8.4-10.2); Carbon Dioxide 30 mmol/L (22.0-30.0); Chloride 101 mmol/L (98-107); Cholesterol 259 mg/dl (140-200); Estimated Glomerular Filt Rate 83 ml/min (>60); GFR (African American) 100 ML/MIN (>60); Globulin 2.5 g/dL (1.3-3.2); Glucose 85 mg/dl (74-100); Potassium 5.6 mmoL/L (3.5-5.1); Sodium 140 mmol/L (136-145); Triglycerides 142 mg/dl (30-150); VLDL Cholesterol 28 mg/dL (0-40)
[2023-10-08 15:21] LABS: Chol/HDL Ratio 2.6 (1-3.5); HDL Cholesterol 99 mg/dl (40-60)
[2023-10-08 15:24] LABS: Direct LDL Cholesterol 122.16 mg/dL (100-129)
== END 2023-10-08 23:59 | disposition home or self-care (01) ==
LOC: LAB.DROPOF 13:43
PROVIDERS: PCP Internal Medicine; Visit Provider Internal Medicine
DX: E78.5 Hyperlipidemia, unspecified (principal); M15.0 Primary generalized (osteo)arthritis; K52.831 Collagenous colitis
CPT/HCPCS: 80053; 80061